=== PATIENT | male | born 1950 | race Caucasian/White ===

== ENCOUNTER 2018-09-23 08:10 | Inpatient (IN) ==
--- NOTE | 2018-09-23 09:33 | General Surg History&Physical ---
Date of Encounter: 09/23/18 Time of Encounter: 09:33 Assessment and Plan (1) Colon cancer Current Visit: Yes Status: Acute The assessment and plan as outlined above was discussed with the patient and/or family members who expressed understanding and agreement. All questions were answered. Has completed his ATBX and laxative bowel prep. Scheduled for elective robotic colectomy with Dr. Combs today. NPO EPCDs GI and DVT prophylaxis IS IVF supportive care and discomfort management Qualifiers: Colon location: transverse Qualified Code(s): C18.4 - Malignant neoplasm of transverse colon (2) Anemia Current Visit: Yes Status: Acute The assessment and plan as outlined above was discussed with the patient and/or family members who expressed understanding and agreement. All questions were answered Acute on chronic anemia. S/p transfusions in September 05 blood loss with transverse colon cancer. Hgb stable. Iron significantly decreased Type and screen Transfuse Venofer, 250 mg daily for total 1G over 4 days Repeat am labs Qualifiers: Anemia type: other cause Other causes of anemia: chronic disease, neoplastic Qualified Code(s): D63.0 - Anemia in neoplastic disease (3) HTN, goal below 130/80 Current Visit: Yes Status: Acute The assessment and plan as outlined above was discussed with the patient and/or family members who expressed understanding and agreement. All questions were answered. currently normotensive (4) GERD with esophagitis Current Visit: Yes Status: Acute The assessment and plan as outlined above was discussed with the patient and/or family members who expressed understanding and agreement. All questions were answered. protonix IV daily History of Present Illness Chief complaint: fatigue and bloody BMs HPI: Mr. Vallecillo is a 68 year old male who presents on 09/23/2017 for elective robotic colectomy secondary to malignant neoplasm of the transverse colon. Patient was seen by Dr. Combs on 09/20/2018 at which time he had underwent a colonoscopy by Dr. Santos in August 2018 which noted a transverse colon mass that was biopsied inconsistent with invasive adenocarcinoma. He reports loose bowel movements daily at that time. He denied unwanted weight loss. He reports he recently required blood transfusions due to significant anemia and near syncope episodes. He states his hemoglobin at that time was around 5.5. Presently, he denies headache, dizziness, fever, chills, chest pain, shortness of breath, or abdominal pain. He states he feels generally weak but thinks this is likely due to bowel prep and nothing to eat or drink. He denies constipation or diarrhea. He reports that at baseline (prior to feeling lightheaded and short of breath secondary to anemia) that he always took the steps at work 2 to 3 days per week and would walk daily at least 20 minutes. He denied any chest pain or shortness of breath associated. He denies any cardiovascular history. He is diabetic and reports this is controlled. Patient's past medical, surgical, social, and family history was reviewed with the patient at bedside and updated in the electronic medical record where indicated. Past Med Surg Social Fam HX - Past Medical History Source: patient Medical history: diabetes, GERD, hyperlipidemia, hypertension, other (Gout) Additional medical history: Anemia. Colon cancer (2019). colon polyps. hemorrhoids. Boswell's esophagus. degenerative disc disease Psychiatric history: no psych history - Past Surgical History Surgical History: appendectomy, orthopedic, other - Social History Smoking Status: Never smoker Smokeless Tobacco Status: No Alcohol use: none Drug use: none Occupational status: retired Current living situation: Home - Independent Activity Level: Independent ambulation Recent Out of Country Travel Within the Last 8 Weeks: No Exposure or Possible Exposure to Illness During Travel: No Review of Systems All systems PM: reviewed and no additional remarkable complaints except as stated All systems PM: The remainder of the systems were reviewed and are negative General Surgery Exam Initial Vital Signs Temp Pulse Resp BP Pulse Ox 98.7 F 79 16 110/68 99 09/23/18 08:28 09/23/18 08:28 09/23/18 08:28 09/23/18 08:28 09/23/18 08:28 VITAL SIGNS: Reviewed. See [facility] GENERAL: In no apparent distress. HEENT: Normocephalic, atraumatic, pupils are equal and reactive, extraocular motions intact, oropharynx is pink and moist, there is no neck adenopathy or JVD noted. CHEST/RESPIRATORY: The thorax is free from signs of trauma. Lung sounds: clear to auscultation, normal respiratory effort CARDIAC: Regular rate and rhythm. Normal S1 and S2, with grade to systolic murmur, no gallops or rubs. VASCULAR: No Edema. 2+ peripheral pulses. ABDOMEN: soft, nontender, active bowel sounds MUSCULOSKELETAL: Good range of motion of all major joints. Extremities without clubbing, cyanosis or edema. NEUROLOGIC EXAM: Alert and oriented x 3. Speech normal. Follows commands. PSYCHIATRIC: Mood normal. SKIN: No rash or lesions. Results - Labs 09/23/18 09:24 09/23/18 09:24 Abnormal lab results POC Glucose 186 mg/dL (70-99) H 09/23/18 08:44 All other labs normal. - Imaging Chest x-ray: report reviewed, image reviewed EKG: report reviewed, image reviewed
[2018-09-23 09:38] LABS: Basophils % 0.6 %; Hemoglobin 8.7 g/dL (12.9-16.9); Immature Granulocytes % 0.3 % (0-4); Red Cell Distribution Width 22.1 % (11.5-14.5)
[2018-09-23 09:39] LABS: Eosinophils # 0.1 K/mcL (0.0-0.6); Hematocrit 30.2 % (37.5-50.1); Lymphocytes # 1.5 K/mcL (0.6-4.6); Lymphocytes % 22.3 %; Mean Corpuscular HGB Conc 28.8 g/dL (31.6-35.5); Mean Corpuscular Hemoglobin 21.4 pg (28.0-33.3); Mean Corpuscular Volume 74.4 fL (83.0-100.0); Mean Platelet Volume 10.1 fL (9.4-12.4); Monocytes # 0.5 K/mcL (0.0-1.3); Monocytes % 7.1 %; Neutrophils # 4.4 K/mcL (1.6-8.9); Platelet Count 199 K/mcL (140-400); Red Blood Count 4.06 M/mcL (4.19-5.50); Segmented Neutrophils % 67.7 %; White Blood Count 6.5 K/mcL (4.3-11.1)
[2018-09-23 09:45] LABS: INR 1.2; Prothrombin Time 13.2 Seconds (9.4-12.1)
[2018-09-23 09:54] LABS: BUN/Creatinine Ratio 14 (6-26); Blood Urea Nitrogen 15 mg/dL (8-23); Calcium 10.2 mg/dL (8.6-10.3); Carbon Dioxide 25 mEq/L (23-29); Chloride 106 mEq/L (98-107); Glucose 178 mg/dL (70-105); Osmolality,Calculated 289 (280-300); Potassium 4.2 mEq/L (3.5-5.1); Sodium 137 mEq/L (136-145); eGFR For African Americans > 60 (> 60); eGFR For Non-African Americans > 60 (> 60)
[2018-09-23] MEDS ORDERED: Ondansetron 4 MG/2 ML VIAL IVP PRN ×2 (10:16→22:53)
[2018-09-23] MEDS ORDERED: *HR* Promethazine 25 MG/ML VIAL IVP PRN ×4 (10:16→22:53)
[2018-09-23 10:25] LABS: Estimated Average Glucose 163 mg/dl
[2018-09-23] MEDS ORDERED: Pantoprazole 40 MG VIAL IVP SCH (10:30)
[2018-09-23] MEDS ORDERED: 0.9 % Sodium Chloride 1,000 ML IVC SCH (10:30)
[2018-09-23 10:33] LABS: Anisocytosis 2+ (Not Present); Hypochromasia Present (Not Present); Ovalocytes 1+ (Not Present); Platelet Estimate Normal (Normal)
[2018-09-23 10:43] LABS: % Iron Saturation 4 % (20-55); Iron 21 mcg/dL (65-175); Transferrin 338 mg/dL (203-362)
[2018-09-23] MEDS ORDERED: Iron Sucrose Complex 250 MG in 0.9 % Sodium Chloride 250 ML IVPB SCH (11:00)
[2018-09-23] MEDS ORDERED: Metoprolol XL (24 HR) Succ 50 MG TAB.ER.24H PO SCH (15:00)
[2018-09-23] MEDS ORDERED: Lidocaine -MPF 4% 5 ML AMPUL ONE (16:55)
[2018-09-23] MEDS ORDERED: *HR* Propofol 200 MG/20 ML VIAL IVP ONE ×2 (16:55→18:51)
[2018-09-23] MEDS ORDERED: *HR* FentaNYL (PF) 100 MCG/2 ML VIAL ONE (16:55)
[2018-09-23] MEDS ORDERED: *HR* Rocuronium Bromide 50 MG/5 ML VIAL ONE ×2 (16:55→18:53)
[2018-09-23] MEDS ORDERED: Lidocaine -MPF 2% 2 ML VIAL ONE ×3 (16:55→18:53)
[2018-09-23] MEDS ORDERED: Ondansetron 4 MG/2 ML VIAL ONE ×2 (16:56→21:32)
[2018-09-23] MEDS ORDERED: Dexamethasone 4 MG/ML VIAL ONE ×2 (16:56→18:53)
--- NOTE | 2018-09-23 17:56 | Anesthesia Evaluation PreOp ---
Date of Encounter: 09/23/18 Time of Encounter: 17:54 - Past History Planned Operation: ROBOTIC COLON RESECTION, COLONOSCOPY Cardiac History: HTN, Hyperlipidemia IMPREGNATION OPERATOR History: Denies Any Significant HX Other Medical History: Bleeding, Diabetes Type II, GERD (RODRIGUEZ'S ESOPHAGUS), Other (TRANSVERSE COLON MASS, GOUT,) Anesthesia History: No Prior Anesthetic Complications, Past Anesthesia Alcohol Use: none Drug use: none Medications and Allergies Allopurinol [Zyloprim] 300 mg PO DAILY 09/23/18 [History] Alogliptin Benzoate [Alogliptin] 25 mg PO DAILY 09/23/18 [History] Aspirin Enteric Coated [Aspirin EC] 81 mg PO DAILY 09/23/18 [History] Atorvastatin [Lipitor] 80 mg PO HS 09/23/18 [History] Empagliflozin [Jardiance] 25 mg PO DAILY 09/23/18 [History] Gabapentin [Neurontin] 300 mg PO TID 09/23/18 [History] Lidocaine Patch [Lidoderm 5% patch] 1 patch TP Q24H PRN 09/23/18 [History] Lisinopril-HCTZ 20-12.5 1 tab PO DAILY 09/23/18 [History] Metformin HCl 500 mg PO 1200 09/23/18 [History] Metformin HCl [Glucophage] 1,000 mg PO BID 09/23/18 [History] Metoprolol Succinate 50 mg PO DAILY 09/23/18 [History] Ondansetron HCl [Zofran] 4 mg PO QID PRN 09/23/18 [History] Ranitidine HCl [Acid Denitrator Operator] 150 mg PO BID 09/23/18 [History] Sildenafil Citrate 50 mg PO AD PRN 09/23/18 [History] Terbinafine HCl [Terbinafine] 1 appl TP BID 09/23/18 [History] glipiZIDE [Glipizide] 20 mg PO BID 09/23/18 [History] Allergy/AdvReac Type Severity Reaction Status Date / Time No Known Drug Allergies Allergy Unknown none Verified 09/23/18 12:34 - Meds/Allergy Pre-op Review Medications Reviewed: Yes Allergies Reviewed: Yes Beta Blockers on Current Med List: No Anesthesia Results - Labs 09/23/18 09:24 09/23/18 09:24 Anesthesia Exam Vital Signs/O2 Sat/Glucose, Most Recent Temp Pulse Resp BP Pulse Ox 98.4 F 75 16 145/75 99 09/23/18 15:37 09/23/18 15:37 09/23/18 15:37 09/23/18 15:37 09/23/18 15:37 Blood Glucose* 124 Weight: 80 KG- BMI 24 NPO (# of Hours): >8 - HEENT Mallampati: I Teeth: Normal - Cardiac Rhythm: Regular - Pulmonary Breath Sounds: bilateral Clear Respiratory Effort: Symmetrical Anesthesia Assess/Plan ASA Score: 3 Anesthetic Plan: General Monitoring Plan: Standard Monitors Recovery Plan: PACU
[2018-09-23] MEDS ORDERED: Albuterol 2.5 MG/3 ML NEBULIZER IH ONE ×2 (18:23→22:53)
[2018-09-23] MEDS ORDERED: Dexamethasone 4 MG/ML VIAL IVP ONE ×2 (18:23→22:53)
[2018-09-23] MEDS ORDERED: *HR* OxyCODONE Immed Rel 5 MG TABLET PO PRN ×2 (18:23→22:53)
[2018-09-23] MEDS ORDERED: *HR* HYDROmorphone (PF) 1 MG/ML SYRINGE IVP PRN ×2 (18:23→22:53)
[2018-09-23] MEDS ORDERED: Acetaminophen IV 1,000 MG/100 ML INFUS..BTL ONE (18:47)
[2018-09-23] MEDS ORDERED: *HR* HYDROMORPHONE 2 MG/ML VIAL ONE (18:51)
[2018-09-23] MEDS ORDERED: *HR* Succinylcholine 200 MG/10 ML VIAL IVP ONE (18:53)
[2018-09-23] MEDS ORDERED: CefOXitin 2,000 MG VIAL ONE (20:12)
[2018-09-23] MEDS ORDERED: *HR* Metoprolol 5 MG/5 ML VIAL IVP ONE (20:12)
[2018-09-23] MEDS ORDERED: *HR* Magnesium Sulfate 1 GM/2 ML VIAL ONE (20:51)
[2018-09-23] MEDS ORDERED: Neostigmine Methylsulfate 3 MG/3 ML SYRINGE ONE (21:25)
[2018-09-23] MEDS ORDERED: Ketorolac 30 MG/ML VIAL ONE (21:27)
--- NOTE | 2018-09-23 22:07 | Operative Note ---
Date of procedure: 09/23/18 Pre-op diagnosis: Proximal transverse colon cancer Post-op diagnosis: same Procedure: Robotic extended right hemicolectomy with primary anastomosis Anesthesia: NURIAA Surgeon: Chevy Combs Was there an assistant health educator present: Yes House Piping Inspector: Emily Tavarez Estimated blood loss (cc): 15 Specimen: Right colon and transverse colon Condition: stable Disposition: floor Procedure in Detail: After informed consent, the patient was taken the operating room placed in a supine position. After adequate sedation and anesthesia the abdomen was prepped and draped. 2 towel clips are placed the umbilicus and impression was inserted into the abdomen. Pneumoperitoneum was created. A 12 mm cannulas placed in the left mid axillary line below the level of the umbilicus. Once in place additional robotic cannulas were placed under direct visualization. A 5 mm cannulas placed in the left lower quadrant. Once all cannulas were in place robot was docked over the patient's right hip. The patient had undergone a colonoscopy preoperatively to identify the tumor. It appeared to be between the mid transverse colon and hepatic flexure. No biopsies were taken during the colonoscopy. Once it was completed we are able to identify the tumor in the colon as being proximal transverse colon. Upon initial evaluation within the abdomen the colonoscopy findings were consistent with a tattoo delineations of the transverse colon. The Ashu graspers were placed into cannulas on the right side of the abdomen. A vessel sealer was inserted into the abdomen as well. This point the terminal ileum and fold of Treves were identified and it was retracted anteriorly and cephalad. The ileocolic vessel was easily identified. A window was created in the retroperitoneum. The duodenum was easily identified and kept on harm's way. The right colic artery and vein were isolated and taken with a vessel sealer. The duodenum was kept out of harm's way as we transected the transverse mesocolon to an area approximate 5-8 cm distal to the tattoo that was distal to the tumor. This area was taken with a 60 mm blue stapling load. The same was performed for the terminal ileum. The retroperitoneal attachments were then taken down with a vessel sealer. Once the entire right colon had been freed from the retroperitoneal attachments it was placed over the right lobe of the liver. The terminal ileum was then approximated to the mid transverse colon. 2 enterotomies were created with scissors. The 60 mm stapling load was then inserted in each limb of the small bowel and large bowel secured in the nose fired. The common enterotomy was closed with 2 individual 2-0 silk sutures in running fashion. A portion of omentum was tacked over the anastomosis in the transverse colon omentum was then placed safely back over the anastomotic site. 2 needles which towards the falciform the robot was undocked and the needles were removed. A counterincision was made at the 12 mm camera site. The large bowel was removed through a wound protector. The tumor was within the specimen as it was palpated and brought out through this opening. Once completed the fascia was closed with loop PDS suture in running fashion it was injected with half percent Marcaine the same was performed on the 13 mm site as well as 8 mm sites. [place] were placed in the skin. The patient tolerated the procedure quite well.
[2018-09-23] MEDS ORDERED: *HR* Nalbuphine 10 MG/ML AMPUL ONE (22:17)
[2018-09-24] MEDS ORDERED: 0.9 % Sodium Chloride 1,000 ML IVC ONE (01:06)
[2018-09-24] MEDS: 0.9 % Sodium Chloride 1,000 ML IVC SCH ×3 (02:03→12:30)
--- NOTE | 2018-09-24 02:10 | Anesthesia Evaluation Post Op ---
Date of Encounter: 09/24/18 Time of Encounter: 22:44 - Discharge PostOp Status: Transfer Patient to floor (Patient's vital signs have been reviewed. Patient is stable postoperatively and has adequately recovered from anesthesia. Patient is determined to have stable airway patency and respiratory function including respiratory rate and oxygen saturation. Patient has a stable heart rate, blood pressure and adequate hydration. Patients mental status is acceptable. Patients temperature is appropriate. Pain and nausea are adequately controlled.)
[2018-09-24] MEDS ORDERED: *HR* Dextrose 50 % in Water (Syg) 50 ML SYRINGE IVP PRN ×2 (05:29→11:24)
[2018-09-24] MEDS ORDERED: D5% in Water 1,000 ML IVC PRN ×2 (05:29→11:24)
[2018-09-24] MEDS ORDERED: Dextrose Gel 15 GM/37.5 ML TUBE PO PRN ×4 (05:29→11:24)
[2018-09-24] MEDS ORDERED: *HR* Heparin 5,000 UNIT/ML VIAL SQ SCH (06:00)
[2018-09-24] MEDS ORDERED: Insulin LISPRO 300 UNITS/3 ML VIAL SQ SCH ×4 (06:00→17:05)
[2018-09-24] MEDS ORDERED: 0.9 % Sodium Chloride 1,000 ML IV ONE (07:48)
[2018-09-24 08:01] LABS: Basophils % 0.1 %; Immature Granulocytes % 0.9 % (0-4); Mean Corpuscular Hemoglobin 21.7 pg (28.0-33.3)
[2018-09-24 08:02] LABS: Hematocrit 21.5 % (37.5-50.1); Lymphocytes % 7.2 %; Mean Corpuscular Volume 80.5 fL (83.0-100.0); Mean Platelet Volume 10.9 fL (9.4-12.4); Monocytes # 0.4 K/mcL (0.0-1.3); Nucleated Red Blood Cells 0.1 /100 WBC (0); Platelet Count 240 K/mcL (140-400); Red Blood Count 2.67 M/mcL (4.19-5.50); Red Cell Distribution Width 22.5 % (11.5-14.5); Segmented Neutrophils % 88.8 %
[2018-09-24 08:05] LABS: Neutrophils # 12.4 K/mcL (1.6-8.9)
[2018-09-24 08:13] LABS: Hemoglobin 5.8 g/dL (12.9-16.9)
[2018-09-24] MEDS ORDERED: Furosemide 20 MG/2 ML VIAL IVP ONE ×2 (08:14→11:24)
[2018-09-24 08:17] LABS: Calcium 8.7 mg/dL (8.6-10.3); Magnesium 2.5 mg/dL (1.6-2.6); Phosphorous 7.3 mg/dL (2.7-4.5); Potassium 6.4 mEq/L (3.5-5.1)
--- NOTE | 2018-09-24 08:19 | General Surgery Progress Note ---
Date of Encounter: 09/24/18 Time of Encounter: 08:17 - Assessment and Plan (1) Colon cancer Current Visit: Yes Status: Acute Date of procedure: 09/23/18 Pre-op diagnosis: Proximal transverse colon cancer Post-op diagnosis: same Procedure: Robotic extended right hemicolectomy with primary anastomosis Anesthesia: EDITA Surgeon: Chevy Combs POD #1 as above. Pathology pending. Reports abdominal discomfort is minimal. He is drowsy but just received IV phenergan for nausea (no vomiting). He is hypotensive and has decreased hgb. See below. No obvious source identified. RN reports oozing from surgical incisions, but not obvious hemorrhage. Roman cath placed for acute urinary retention. 1L clear yellow urine returned. UA obtained at time of insertion. Transfer to as below continue supportive care and discomfort management Bedrest at this time EPCDs Will not start hep SQ given findings above IVF Insert 2nd large bore IV; if unable to obtain access, RN to place order for MIDLINE stat. continue to closely monitor Strict hourly I&O Qualifiers: Colon location: transverse Qualified Code(s): C18.4 - Malignant neoplasm of transverse colon (2) Anemia Current Visit: Yes Status: Acute Acute blood loss anemia on chronic anemia Blood loss per op note minimal. No clear causation of decreased hgb appreciated as abdomen is soft and non-tender. Hgb 5.8 today. Transfuse 2U PRBCs STAT. 40 mg lasix in between units. OK to transfuse at highest rate, pt is w/o cardiovascular history. Will closely monitor Bedrest H&H in 6 hours (1400) Qualifiers: Anemia type: other cause Other causes of anemia: chronic disease, n eoplastic Qualified Code(s): D63.0 - Anemia in neoplastic disease (3) HTN, goal below 130/80 Current Visit: Yes Status: Acute Currently hypotensive. All home medications held (4) GERD with esophagitis Current Visit: Yes Status: Acute protonix IV daily (5) Hypotension, unspecified Current Visit: Yes Status: Acute hypovolemia vs acute blood loss. BMP pending. He has made 1L urine since surgery completed. Bolus 2L NS over 1 hours Transfer to for higher level of care Qualifiers: Hypotension type: unspecified hypotension type Qualified Code(s): I95.9 - Hypotension, unspecified (6) Diabetes Current Visit: Yes Status: Acute SSI Q6H Qualifiers: Diabetes mellitus type: type 2 Diabetes mellitus rat exterminator insulin use: without rat exterminator use Diabetes mellitus complication status: without complication Qualified Code(s): E11.9 - Type 2 diabetes mellitus without complications Subjective Narrative: Rerpots nausea, no vimiting, pain is controlled overall. Has some pressure in the low abdomen. Was just given phenergan IV for nausea, so he is drowsy right now. Noted RN notes pt refusing insulin. Objective Vital Signs - Last 8 Hours Temp Pulse Resp BP Pulse Ox 09/24/18 04:58 65 14 80/48 97 09/24/18 03:45 97.8 F 63 16 83/46 100 09/24/18 02:30 64 78/41 09/24/18 02:12 63 14 87/46 98 09/24/18 01:28 98.0 F 64 14 78/43 97 09/24/18 01:00 97.4 F L 65 14 78/44 99 09/24/18 00:55 97.9 F 66 14 70/38 98 Intake and Output 09/23/18 09/24/18 09/24/18 23:59 07:59 15:59 Intake Total 605 / 867.5 Output Total Balance 590 / 852.5 Intake: IV Fluids 605 / 867.5 0.9 % Sodium Chloride 1,000 ML 605 / 605 @ 125 mls/hr IVC .Q8H [facility] Rx#: [id number] Output: Estimated Blood Loss Other: Blood Glucose* 155 355 - General physical appearance no distress, other (drowsy) - Eyes pale - ENT normal nares, normal mucosa, atraumatic, normocephalic - Neck Neck exam: trachea midline - Respiratory other (decreased clear breath sounds) - Cardiovascular Cardiovascular exam: Present: RRR - Abdomen Abdomen: Present: soft (prior to roman insertion, low abdomen was firm, after insertion abdomen is soft), tender (expected postoperative). Absent: bowel sounds present - Incision Incision: Present: draining (small amount of red drainage), intact - Integumentary no rash - Neurologic normal sensation - Musculoskeletal other (lying flat in bed) - Psychiatric oriented to place, memory intact, other (drowsy,but answers questions appropriately) - Labs 09/24/18 07:46 06/21/19 07:46 Diabetes panel 09/23/18 09/23/18 09/24/18 Range/Units 09:24 09:24 07:46 Sodium 137 (136-145) mEq/L Potassium 4.2 6.4 H D (3.5-5.1) mEq/L Chloride 106 (98-107) mEq/L Carbon Dioxide 25 (23-29) mEq/L BUN 15 (8-23) mg/dL Creatinine 1.10 (0.70-1.30) mg/dL Glucose 178 H (70-105) mg/dL Hemoglobin A1c 7.3 H ( - 5.6) % Calcium 10.2 (8.6-10.3) mg/dL Calcium panel 09/23/18 Range/Units 09:24 Calcium 10.2 (8.6-10.3) mg/dL Pituitary panel 09/23/18 09/24/18 Range/Units 09:24 07:46 Sodium 137 (136-145) mEq/L Potassium 4.2 6.4 H D (3.5-5.1) mEq/L Chloride 106 (98-107) mEq/L Carbon Dioxide 25 (23-29) mEq/L BUN 15 (8-23) mg/dL Creatinine 1.10 (0.70-1.30) mg/dL Glucose 178 H (70-105) mg/dL Calcium 10.2 (8.6-10.3) mg/dL Adrenal panel 09/23/18 09/24/18 Range/Units 09:24 07:46 Sodium 137 (136-145) mEq/L Potassium 4.2 6.4 H D (3.5-5.1) mEq/L Chloride 106 (98-107) mEq/L Carbon Dioxide 25 (23-29) mEq/L BUN 15 (8-23) mg/dL Creatinine 1.10 (0.70-1.30) mg/dL Glucose 178 H (70-105) mg/dL Calcium 10.2 (8.6-10.3) mg/dL Consult Discharge Plan - Plan Referrals: Chevy Combs DO [Primary Care Provider] - Chloe Garcia MD [Partnered Physician] -
[2018-09-24] MEDS ORDERED: 0.9 % Sodium Chloride 250 ML ONE ×2 (08:36→12:04)
[2018-09-24 08:37] LABS: Hypochromasia Present (Not Present); Platelet Estimate Normal (Normal); Polychromasia 1+ (Not Present)
[2018-09-24 08:47] LABS: Bilirubin,Urine Negative (Negative); Blood,Urine Negative (Negative); Clarity,Urine Cloudy (Clear); Color,Urine Yellow (Yellow); Glucose,Urine (UA) >=1000 mg/dL (Normal); Ketones,Urine 15 mg/dL (Negative); Leukocyte Esterase,Urine Negative (Negative); Nitrite,Urine Negative (Negative); PH,Urine 6.5 pH Units (5.0-8.0); Protein,Urine Trace mg/dL (Neg-Trace); Specific Gravity,Urine 1.026 (1.010-1.025); Urobilinogen,Urine Normal (Normal)
[2018-09-24 08:49] LABS: Bacteria,Urine None Seen per hpf (None-Few); Hyaline Casts,Urine None Seen per lpf (None-Few); Squamous Epithelial Cell,Urine Moderate per lpf (None-Few); WBC,Urine 0-3 per hpf (0-3)
[2018-09-24] MEDS ORDERED: Iron Sucrose Complex 250 MG in 0.9 % Sodium Chloride 250 ML IVPB SCH (09:00)
[2018-09-24] MEDS ORDERED: Metoprolol XL (24 HR) Succ 50 MG TAB.ER.24H PO SCH (09:00)
[2018-09-24] MEDS ORDERED: Pantoprazole 40 MG VIAL IVP SCH (09:00)
[2018-09-24 09:22] LABS: Calcium 8.5 mg/dL (8.6-10.3); Potassium 6.3 mEq/L (3.5-5.1)
--- NOTE | 2018-09-24 09:33 | Electrocardiograph Report ---
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
[2018-09-24] MEDS ORDERED: *HR* Promethazine 25 MG/ML VIAL IVP PRN (11:24)
[2018-09-24] MEDS ORDERED: Ondansetron 4 MG/2 ML VIAL IVP PRN (11:24)
--- NOTE | 2018-09-24 13:54 | Electrocardiograph Report ---
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
[2018-09-24 16:22] LABS: Hematocrit 23.1 % (37.5-50.1)
[2018-09-24 16:46] LABS: Calcium 8.7 mg/dL (8.6-10.3); Potassium 4.6 mEq/L (3.5-5.1)
[2018-09-24 21:48] LABS: Hematocrit 22.2 % (37.5-50.1); Hemoglobin 6.9 g/dL (12.9-16.9)
[2018-09-25] MEDS: 0.9 % Sodium Chloride 1,000 ML IVC SCH ×2 (01:35→10:45)
[2018-09-25 02:23] LABS: Basophils % 0.1 %; Lymphocytes % 14.9 %; Monocytes % 7.9 %; Nucleated Red Blood Cells 0.2 /100 WBC (0)
[2018-09-25 02:25] LABS: Eosinophils % 0.1 %; Hematocrit 21.8 % (37.5-50.1); Hemoglobin 6.7 g/dL (12.9-16.9); Immature Granulocytes % 0.4 % (0-4); Immature Platelets 5.1 % (1.1-6.1); Lymphocytes # 1.9 K/mcL (0.6-4.6); Mean Corpuscular HGB Conc 30.7 g/dL (31.6-35.5); Mean Corpuscular Hemoglobin 23.9 pg (28.0-33.3); Mean Corpuscular Volume 77.9 fL (83.0-100.0); Mean Platelet Volume 11.5 fL (9.4-12.4); Platelet Count 179 K/mcL (140-400); Red Cell Distribution Width 21.2 % (11.5-14.5); Segmented Neutrophils % 76.6 %; White Blood Count 12.6 K/mcL (4.3-11.1)
[2018-09-25 02:30] LABS: Neutrophils # 9.7 K/mcL (1.6-8.9)
[2018-09-25 02:46] LABS: BUN/Creatinine Ratio 21 (6-26); Blood Urea Nitrogen 29 mg/dL (8-23); Calcium 8.8 mg/dL (8.6-10.3); Carbon Dioxide 21 mEq/L (23-29); Chloride 107 mEq/L (98-107); Glucose 227 mg/dL (70-105); Magnesium 2.4 mg/dL (1.6-2.6); Osmolality,Calculated 299 (280-300); Phosphorous 4.1 mg/dL (2.7-4.5); Potassium 4.1 mEq/L (3.5-5.1); Sodium 138 mEq/L (136-145); eGFR For African Americans > 60 (> 60); eGFR For Non-African Americans 52 (> 60)
--- NOTE | 2018-09-25 06:59 | General Surgery Progress Note ---
Date of Encounter: 09/25/18 Time of Encounter: 06:56 - Assessment and Plan (1) Colon cancer Current Visit: Yes Status: Acute pod 2 robotic colectomy bowel sounds advance diet as tolerate to diabetic diet Qualifiers: Colon location: transverse Qualified Code(s): C18.4 - Malignant neoplasm of transverse colon (2) Anemia Current Visit: Yes Status: Acute transfuse 1 unit PRBC monitor Hb, stable decrease IVF good uop cr improving Qualifiers: Anemia type: other cause Other causes of anemia: chronic disease, neoplastic Qualified Code(s): D63.0 - Anemia in neoplastic disease (3) HTN, goal below 130/80 Current Visit: Yes Status: Chronic restart lopressor only monitor BP (4) GERD with esophagitis Current Visit: Yes Status: Chronic stop protonix, restart H2 tianna (5) Diabetes Current Visit: Yes Status: Chronic medium SSI, elevated glucose still hold metformin for now due to MOI change his SSI to high dose Qualifiers: Diabetes mellitus type: type 2 Diabetes mellitus exterminator termite insulin use: without fpc use Diabetes mellitus complication status: without complication Qualified Code(s): E11.9 - Type 2 diabetes mellitus without complications (6) Urinary retention Current Visit: Yes Status: Acute dc roman, good uop flomax Subjective Patient reports: feels better, still having pain, tolerating liquids well, voiding w/o difficulty (roman in place), flatus, no bowel movement, afebrile Objective Vital Signs - Last 8 Hours Temp Pulse Resp BP Pulse Ox 09/25/18 04:10 97.8 F 81 16 122/62 98 09/25/18 04:06 97.8 F 81 16 122/62 98 09/24/18 23:50 98.1 F 77 18 123/65 98 Intake and Output 09/24/18 09/24/18 09/25/18 15:59 23:59 07:59 Intake Total 2710 / 3470 760 / 3470 1000 / 1000 Output Total 2050 / 2750 700 / 2750 0 / 0 Balance 660 / 720 60 / 720 1000 / 1000 Intake: IV Fluids 1000 / 1000 1000 / 1000 0.9 % Sodium Chloride 1,000 ML 1000 / 1000 1000 / 1000 @ 125 mls/hr IVC .Q8H [facility] Rx#: [id number] Oral 960 / 1720 760 / 1720 0 / 0 Blood Product 750 / 750 Rbcs Leuko Poor As-1 Unit 400 / 400 [id number] Rbcs Leuko Poor As-3 Ph Unit 350 / 350 [id number] Output: Catheter 2050 / 2750 700 / 2750 0 / 0 Urethral (Roman) 1000 / 1350 350 / 1350 0 / 0 Other: Meal npo Blood Glucose* 333 265 - General physical appearance well developed, well nourished, no distress, moderate pain - Eyes normal ocular movement - ENT normal mucosa - Neck Neck exam: trachea midline - Cardiovascular Cardiovascular exam: Present: RRR - Abdomen Abdomen: Present: bowel sounds present, soft, tender (appropriate post op tenderness) - Incision Incision: Present: clean and dry, intact - Genitourinary other (roman with clear yellow urine) - Integumentary no rash - Neurologic CN 2-12 grossly intact - Musculoskeletal normal posture - Psychiatric oriented to time, oriented to person, oriented to place, speech is normal, memory intact - Labs 09/25/18 00:51 09/25/18 00:51 Diabetes panel 09/24/18 09/24/18 09/24/18 Range/Units 07:46 08:50 16:01 Sodium 138 137 137 (136-145) mEq/L Potassium 6.4 H D 6.3 H 4.6 D (3.5-5.1) mEq/L Chloride 107 107 105 (98-107) mEq/L Carbon Dioxide 13 L 15 L 19 L (23-29) mEq/L BUN 24 H 25 H 30 H (8-23) mg/dL Creatinine 1.70 H 1.64 H 1.68 H (0.70-1.30) mg/dL Glucose 373 H 369 H 349 H (70-105) mg/dL Calcium 8.7 8.5 L 8.7 (8.6-10.3) mg/dL 09/25/18 Range/Units 00:51 Sodium 138 (136-145) mEq/L Potassium 4.1 (3.5-5.1) mEq/L Chloride 107 (98-107) mEq/L Carbon Dioxide 21 L (23-29) mEq/L BUN 29 H (8-23) mg/dL Creatinine 1.35 H (0.70-1.30) mg/dL Glucose 227 H (70-105) mg/dL Calcium 8.8 (8.6-10.3) mg/dL Calcium panel 09/24/18 09/24/18 09/24/18 Range/Units 07:46 08:50 16:01 Calcium 8.7 8.5 L 8.7 (8.6-10.3) mg/dL Phosphorus 7.3 H (2.7-4.5) mg/dL 09/25/18 Range/Units 00:51 Calcium 8.8 (8.6-10.3) mg/dL Phosphorus 4.1 (2.7-4.5) mg/dL Pituitary panel 09/24/18 09/24/18 09/24/18 Range/Units 07:46 08:50 16:01 Sodium 138 137 137 (136-145) mEq/L Potassium 6.4 H D 6.3 H 4.6 D (3.5-5.1) mEq/L Chloride 107 107 105 (98-107) mEq/L Carbon Dioxide 13 L 15 L 19 L (23-29) mEq/L BUN 24 H 25 H 30 H (8-23) mg/dL Creatinine 1.70 H 1.64 H 1.68 H (0.70-1.30) mg/dL Glucose 373 H 369 H 349 H (70-105) mg/dL Calcium 8.7 8.5 L 8.7 (8.6-10.3) mg/dL 09/25/18 Range/Units 00:51 Sodium 138 (136-145) mEq/L Potassium 4.1 (3.5-5.1) mEq/L Chloride 107 (98-107) mEq/L Carbon Dioxide 21 L (23-29) mEq/L BUN 29 H (8-23) mg/dL Creatinine 1.35 H (0.70-1.30) mg/dL Glucose 227 H (70-105) mg/dL Calcium 8.8 (8.6-10.3) mg/dL Adrenal panel 09/24/18 09/24/18 09/24/18 Range/Units 07:46 08:50 16:01 Sodium 138 137 137 (136-145) mEq/L Potassium 6.4 H D 6.3 H 4.6 D (3.5-5.1) mEq/L Chloride 107 107 105 (98-107) mEq/L Carbon Dioxide 13 L 15 L 19 L (23-29) mEq/L BUN 24 H 25 H 30 H (8-23) mg/dL Creatinine 1.70 H 1.64 H 1.68 H (0.70-1.30) mg/dL Glucose 373 H 369 H 349 H (70-105) mg/dL Calcium 8.7 8.5 L 8.7 (8.6-10.3) mg/dL 09/25/18 Range/Units 00:51 Sodium 138 (136-145) mEq/L Potassium 4.1 (3.5-5.1) mEq/L Chloride 107 (98-107) mEq/L Carbon Dioxide 21 L (23-29) mEq/L BUN 29 H (8-23) mg/dL Creatinine 1.35 H (0.70-1.30) mg/dL Glucose 227 H (70-105) mg/dL Calcium 8.8 (8.6-10.3) mg/dL Consult Discharge Plan - Plan Instructions: Colectomy (DC) Additional Instructions: General Surgical Discharge Instructions 1. No pushing, pulling, or lifting greater than 15 lbs for 2-4 weeks (depending upon procedure). 2. You may shower beginning today, but no tub baths, soaking, or swimming for 2 weeks. 3. You may resume driving when you are off narcotics and are safe to react in a car. 4. Take ibuprofen every 8 hours for discomfort. If this does not relieve discomfort, you may take the as needed Percocet. Take narcotics as directed. Do not take more narcotics then directed and do not share your narcotics with any other person. Do not drink alcohol while on narcotics. 5. Take stool softeners (Colace) or a water based laxative (Miralax) while taking narcotics. You may hold for loose stools. 6. Report any fevers greater than 100.5F, increase abdominal discomfort, drainage that looks like pus, increased redness or pain at the surgical site, or any vomiting. 7. Report any pain in the calves, shortness of breath, or rapid heartbeat. 8. Follow-up in the office as directed. 9. If you were prescribed antibiotics, do not stop them without talking to your provider. Referrals: Chevy Combs DO [Primary Care Provider] - 10/12/18 9:10 am Chloe Garcia MD [Partnered Physician] - Prescriptions: Docusate Sodium [Colace] 100 mg PO BID PRN #30 capsule PRN Reason: Contstipation Ibuprofen 800 mg PO Q8H PRN #30 tablet PRN Reason: Postsurgical pain OxyCODONE/APAP 5/325 [Percocet 5/325 MG] 1 each PO Q6HR PRN 7 Days #28 tablet PRN Reason: Pain Ondansetron ODT [Zofran ODT] 4 mg SL Q4HR PRN #15 tab.rapdis PRN Reason: Postsurgical nausea
[2018-09-25] MEDS ORDERED: METOPROLOL SUCCINATE 50 MG PO SCH (09:00)
[2018-09-25] MEDS ORDERED: Pantoprazole 40 MG VIAL IVP SCH (09:00)
[2018-09-25] MEDS ORDERED: Iron Sucrose Complex 250 MG in 0.9 % Sodium Chloride 250 ML IVPB SCH (09:00)
[2018-09-25] MEDS: Famotidine 20 MG TABLET PO SCH ×2 (10:35→18:24)
[2018-09-25] MEDS: Metoprolol XL (24 HR) Succ 50 MG TAB.ER.24H PO SCH (10:36)
[2018-09-25] MEDS: Insulin LISPRO 300 UNITS/3 ML VIAL SQ SCH ×4 (10:37→20:38)
[2018-09-25] MEDS: *HR* HYDROcodone/Acet 5/325 mg TABLET PO PRN (10:38)
[2018-09-25] MEDS: Acetaminophen 325 MG TABLET PO PRN (13:30)
--- NOTE | 2018-09-25 13:52 | Electrocardiograph Report ---
[address] [address] Test Date: 2018-09-24 Pat Name: Casey Vallecillo Department: 115 Room: 2N06 Gender: M Furnace Operator: : [id number] Requested By: Radha Ba Order Number: [id number] Reading MD: Wil Garcia Measurements Intervals [place] Rate: 69 P: 40 HI: 194 QRS: -12 QRSD: 109 T: 37 QT: 453 QTc: 472 Interpretive Statements SINUS RHYTHM LOW QRS VOLTAGE IN PRECORDIAL LEADS INFERIOR ST-T CHANGES SIMILAR TO PRIOR ECG Electronically Signed On 09-25-2018 13:50:49 EDT by Wil Garcia
[2018-09-26] MEDS: 0.9 % Sodium Chloride 1,000 ML IVC SCH (01:57)
[2018-09-26 04:02] LABS: Basophils % 0.3 %; Eosinophils # 0.1 K/mcL (0.0-0.6); Eosinophils % 0.6 %; Hematocrit 19.9 % (37.5-50.1); Immature Granulocytes % 1.7 % (0-4); Lymphocytes # 1.6 K/mcL (0.6-4.6); Lymphocytes % 17.1 %; Mean Corpuscular HGB Conc 30.2 g/dL (31.6-35.5); Mean Corpuscular Hemoglobin 24.4 pg (28.0-33.3); Mean Corpuscular Volume 80.9 fL (83.0-100.0); Mean Platelet Volume 11.1 fL (9.4-12.4); Monocytes # 0.6 K/mcL (0.0-1.3); Monocytes % 6.6 %; Neutrophils # 6.9 K/mcL (1.6-8.9); Nucleated Red Blood Cells 0.9 /100 WBC (0); Platelet Count 150 K/mcL (140-400); Red Blood Count 2.46 M/mcL (4.19-5.50); Red Cell Distribution Width 21.4 % (11.5-14.5); Segmented Neutrophils % 73.7 %; White Blood Count 9.4 K/mcL (4.3-11.1)
[2018-09-26 04:05] LABS: BUN/Creatinine Ratio 18 (6-26); Blood Urea Nitrogen 17 mg/dL (8-23); Calcium 8.9 mg/dL (8.6-10.3); Carbon Dioxide 21 mEq/L (23-29); Chloride 110 mEq/L (98-107); Glucose 231 mg/dL (70-105); Osmolality,Calculated 293 (280-300); Potassium 4.2 mEq/L (3.5-5.1); Sodium 137 mEq/L (136-145); eGFR For African Americans > 60 (> 60); eGFR For Non-African Americans > 60 (> 60)
[2018-09-26 04:23] LABS: Anisocytosis 2+ (Not Present); Polychromasia 1+ (Not Present)
[2018-09-26 04:24] LABS: Hypochromasia Present (Not Present); Platelet Estimate Normal (Normal); Tear Drop Cells 1+ (Not Present)
[2018-09-26] MEDS: Acetaminophen 325 MG TABLET PO PRN ×2 (05:00→20:04)
[2018-09-26] MEDS ORDERED: 0.9 % Sodium Chloride 250 ML ONE ×2 (06:33→10:34)
[2018-09-26 06:47] LABS: INR 1.1
--- NOTE | 2018-09-26 08:23 | General Surgery Progress Note ---
Date of Encounter: 09/26/18 Time of Encounter: 08:20 - Assessment and Plan (1) Colon cancer Current Visit: Yes Status: Acute pod 3 robotic colectomy bowel sounds tolerating diabetic diet has return of bowel function, flatus and bm/diarrhea, stopped stool softeners saline lock iv ok shower Qualifiers: Colon location: transverse Qualified Code(s): C18.4 - Malignant neoplasm of transverse colon (2) Anemia Current Visit: Yes Status: Acute transfuse 2 unit PRBC today, apparently patient did not get unit of blood nursing was asked to order yesterday monitor Hb CT shows no evidence of hematoma good uop, patient is urinating and dumping urine in toilet and nurses not able to accurately record cr improving Qualifiers: Anemia type: other cause Other causes of anemia: chronic disease, neoplastic Qualified Code(s): D63.0 - Anemia in neoplastic disease (3) HTN, goal below 130/80 Current Visit: Yes Status: Chronic continue lopressor only at this time monitor BP (4) GERD with esophagitis Current Visit: Yes Status: Chronic continue H2 tianna (5) Diabetes Current Visit: Yes Status: Chronic medium SSI, elevated glucose restarted home diabetic mediation, except metformin still hold metformin for now due to recent MOI SSI to high dose Qualifiers: Diabetes mellitus type: type 2 Diabetes mellitus intermediate frame tender insulin use: without intermediate frame tender use Diabetes mellitus complication status: without complication Qualified Code(s): E11.9 - Type 2 diabetes mellitus without complications (6) Urinary retention Current Visit: Yes Status: Acute monitor uop flomax Subjective Patient reports: still having pain, pain is less (states just feels rough), tolerating a regular diet (diabetic), voiding w/o difficulty, flatus, diarrhea, afebrile Objective Vital Signs - Last 8 Hours Temp Pulse Resp BP Pulse Ox 09/26/18 07:03 98.9 F 87 16 123/67 94 09/26/18 06:38 99.0 F 87 12 118/62 93 09/26/18 06:35 99.7 F H 92 12 114/62 95 09/26/18 03:03 99 F 87 16 132/67 92 Intake and Output 09/25/18 09/26/18 09/26/18 23:59 07:59 15:59 Intake Total 360 / 1600 1000 / 1000 Output Total 1450 / 2100 500 / 500 Balance -1090 / -500 500 / 500 Intake: IV Fluids 1000 / 1000 0.9 % Sodium Chloride 1,000 ML 1000 / 1000 @ 70 mls/hr IVC .[id number] [facility] Rx #:[id number] Oral 360 / 600 Blood Product 0 / 0 Rbcs Leuko Poor As-1 Unit 0 / 0 [id number] Output: Urine 950 / 950 500 / 500 Catheter 500 / 1150 Other: Meal Dinner Percent of Meal Consumed 100% Stool Size Moderate Stool Consistency soft Stool Color Brown # Voids 1 Weight 87.8 kg Blood Glucose* 289 243 Patient Weight 09/26/18 23:59 Weight 87.8 kg - General physical appearance well developed, well nourished, no distress - Eyes PERRL, normal ocular movement - ENT normal mucosa, normocephalic - Neck Neck exam: trachea midline - Respiratory normal expansion, clear to auscultation - Cardiovascular Cardiovascular exam: Present: RRR - Abdomen Abdomen: Present: bowel sounds present, soft, tender (appropriate post op tenderness) - Incision Incision: Present: clean and dry, intact - Integumentary no rash, no growths - Neurologic CN 2-12 grossly intact - Musculoskeletal normal posture - Psychiatric oriented to time, oriented to person, oriented to place, speech is normal, memory intact - Labs 09/26/18 03:29 09/26/18 03:29 Diabetes panel 09/26/18 Range/Units 03:29 Sodium 137 (136-145) mEq/L Potassium 4.2 (3.5-5.1) mEq/L Chloride 110 H (98-107) mEq/L Carbon Dioxide 21 L (23-29) mEq/L BUN 17 (8-23) mg/dL Creatinine 0.96 (0.70-1.30) mg/dL Glucose 231 H (70-105) mg/dL Calcium 8.9 (8.6-10.3) mg/dL Calcium panel 09/26/18 Range/Units 03:29 Calcium 8.9 (8.6-10.3) mg/dL Pituitary panel 09/26/18 Range/Units 03:29 Sodium 137 (136-145) mEq/L Potassium 4.2 (3.5-5.1) mEq/L Chloride 110 H (98-107) mEq/L Carbon Dioxide 21 L (23-29) mEq/L BUN 17 (8-23) mg/dL Creatinine 0.96 (0.70-1.30) mg/dL Glucose 231 H (70-105) mg/dL Calcium 8.9 (8.6-10.3) mg/dL Adrenal panel 09/26/18 Range/Units 03:29 Sodium 137 (136-145) mEq/L Potassium 4.2 (3.5-5.1) mEq/L Chloride 110 H (98-107) mEq/L Carbon Dioxide 21 L (23-29) mEq/L BUN 17 (8-23) mg/dL Creatinine 0.96 (0.70-1.30) mg/dL Glucose 231 H (70-105) mg/dL Calcium 8.9 (8.6-10.3) mg/dL Consult Discharge Plan - Plan Instructions: Colectomy (DC) Additional Instructions: General Surgical Discharge Instructions 1. No pushing, pulling, or lifting greater than 15 lbs for 2-4 weeks (depending upon procedure). 2. You may shower beginning today, but no tub baths, soaking, or swimming for 2 weeks. 3. You may resume driving when you are off narcotics and are safe to react in a car. 4. Take ibuprofen every 8 hours for discomfort. If this does not relieve discomfort, you may take the as needed Percocet. Take narcotics as directed. Do not take more narcotics then directed and do not share your narcotics with any other person. Do not drink alcohol while on narcotics. 5. Take stool softeners (Colace) or a water based laxative (Miralax) while taking narcotics. You may hold for loose stools. 6. Report any fevers greater than 100.5F, increase abdominal discomfort, drainage that looks like pus, increased redness or pain at the surgical site, or any vomiting. 7. Report any pain in the calves, shortness of breath, or rapid heartbeat. 8. Follow-up in the office as directed. 9. If you were prescribed antibiotics, do not stop them without talking to your provider. Referrals: Chevy Combs DO [Primary Care Provider] - 10/12/18 9:10 am Chloe Garcia MD [Partnered Physician] - Prescriptions: Docusate Sodium [Colace] 100 mg PO BID PRN #30 capsule PRN Reason: Contstipation Ibuprofen 800 mg PO Q8H PRN #30 tablet PRN Reason: Postsurgical pain OxyCODONE/APAP 5/325 [Percocet 5/325 MG] 1 each PO Q6HR PRN 7 Days #28 tablet PRN Reason: Pain Ondansetron ODT [Zofran ODT] 4 mg SL Q4HR PRN #15 tab.rapdis PRN Reason: Postsurgical nausea
[2018-09-26] MEDS ORDERED: GLIPIZIDE 20 MG PO SCH (09:00)
[2018-09-26] MEDS: Famotidine 20 MG TABLET PO SCH ×2 (10:15→16:34)
[2018-09-26] MEDS: Gabapentin 300 MG CAPSULE PO SCH ×3 (10:15→20:04)
[2018-09-26] MEDS: Metoprolol XL (24 HR) Succ 50 MG TAB.ER.24H PO SCH (10:15)
[2018-09-26] MEDS: Insulin LISPRO 300 UNITS/3 ML VIAL SQ SCH ×4 (10:16→20:57)
[2018-09-26] MEDS: Alogliptin Benzoate [Alogliptin] 25 MG PO SCH (10:16)
[2018-09-26] MEDS: Empagliflozin [Jardiance] 25 MG PO SCH (10:16)
[2018-09-26] MEDS: *HR* HYDROcodone/Acet 5/325 mg TABLET PO PRN ×2 (10:17→16:35)
[2018-09-27 05:22] LABS: Eosinophils % 1.7 %; Immature Granulocytes % 1.5 % (0-4); Nucleated Red Blood Cells 0.6 /100 WBC (0)
[2018-09-27 05:23] LABS: Basophils % 0.4 %; Eosinophils # 0.1 K/mcL (0.0-0.6); Hematocrit 27.6 % (37.5-50.1); Hemoglobin 8.4 g/dL (12.9-16.9); Immature Platelets 4.6 % (1.1-6.1); Lymphocytes # 1.7 K/mcL (0.6-4.6); Lymphocytes % 20.4 %; Mean Corpuscular HGB Conc 30.4 g/dL (31.6-35.5); Mean Corpuscular Hemoglobin 25.3 pg (28.0-33.3); Mean Corpuscular Volume 83.1 fL (83.0-100.0); Mean Platelet Volume 11.1 fL (9.4-12.4); Monocytes # 0.5 K/mcL (0.0-1.3); Monocytes % 6.2 %; Neutrophils # 5.7 K/mcL (1.6-8.9); Platelet Count 135 K/mcL (140-400); Red Blood Count 3.32 M/mcL (4.19-5.50); Red Cell Distribution Width 20.8 % (11.5-14.5); Segmented Neutrophils % 69.8 %; White Blood Count 8.2 K/mcL (4.3-11.1)
[2018-09-27 05:59] LABS: Platelet Estimate Decreased (Normal)
[2018-09-27 07:21] VITALS: BP 135/71
[2018-09-27] MEDS: Gabapentin 300 MG CAPSULE PO SCH (08:20)
[2018-09-27] MEDS: Famotidine 20 MG TABLET PO SCH (08:20)
[2018-09-27] MEDS: Alogliptin Benzoate [Alogliptin] 25 MG PO SCH (08:20)
[2018-09-27] MEDS: Empagliflozin [Jardiance] 25 MG PO SCH (08:20)
[2018-09-27] MEDS: *HR* HYDROcodone/Acet 5/325 mg TABLET PO PRN (08:20)
[2018-09-27] MEDS: Metoprolol XL (24 HR) Succ 50 MG TAB.ER.24H PO SCH (08:21)
[2018-09-27] MEDS: Insulin LISPRO 300 UNITS/3 ML VIAL SQ SCH (08:22)
--- NOTE | 2018-09-27 09:03 | Discharge Summary ---
- NOTES TO OUTPATIENT PROVIDER Notes to Outpatient Provider: Pathology pending at time of d/c. He will need oncology appointment Orders not resulted at time of discharge: Pending orders 09/23/18 22:24 Surgical Pathology [PTH] Routine Estimated PT Needs at Discharge: None Estimated OT Needs at Discharge: None Estimated ST Needs at Discharge: None PT Estimated DME Needs at D/C: None Date of Encounter: 09/27/18 Time of Encounter: 09:11 - Discharge Diagnosis (1) Colon cancer Priority: Primary Status: Acute Qualifiers: Colon location: transverse Qualified Code(s): C18.4 - Malignant neoplasm of transverse colon (2) Anemia Priority: Secondary Status: Acute Qualifiers: Anemia type: other cause Other causes of anemia: chronic disease, neoplastic Qualified Code(s): D63.0 - Anemia in neoplastic disease (3) HTN, goal below 130/80 Priority: Secondary Status: Chronic (4) GERD with esophagitis Priority: Secondary Status: Chronic (5) Hypotension, unspecified Priority: Secondary Status: Resolved Qualifiers: Hypotension type: unspecified hypotension type Qualified Code(s): I95.9 - Hypotension, unspecified (6) Diabetes Priority: Secondary Status: Chronic Qualifiers: Diabetes mellitus type: type 2 Diabetes mellitus terminal press operator insulin use: without halfway use Diabetes mellitus complication status: without complication Qualified Code(s): E11.9 - Type 2 diabetes mellitus without complications General Surgery Exam Initial Vital Signs Temp Pulse Resp BP Pulse Ox 98.7 F 79 16 110/68 99 09/23/18 08:28 09/23/18 08:28 09/23/18 08:28 09/23/18 08:28 09/23/18 08:28 - General physical appearance well nourished, no distress, other (sitting upright inchair at bedside) - Eyes normal ocular movement - ENT normal mucosa, atraumatic, normocephalic - Respiratory normal expansion, normal respiratory effort - Cardiovascular Cardiovascular exam: Present: RRR - Abdomen Abdomen general surgery: Present: bowel sounds present, soft, tender (expected postoperative) - Incision Incision: Present: clean and dry, intact - Integumentary Integumentary general surgery: Present: warm and dry, no abnormal pigmentation, growths - Neurologic Present: CN 2-12 grossly intact, normal coordination, normal sensation - Musculoskeletal Present: normal gait, normal posture - Psychiatric Psychiatric general surgery: Present: appropriate, oriented to person, oriented to place, oriented to time, speech is normal, memory intact - Hospital Course Hospital course: Mr. Vallecillo is a 68 year old male presented on 09/23/2017 following an abnormal colonoscopy, for an elective robotic colectomy. He was taken to the operating room on 09/23/2017 where he underwent a robotic extended right hemicolectomy with primary anastomosis by Dr. Combs. His estimated blood loss was 15 mL. His postoperative course was complicated by hypotension and acute on chronic episode of anemia. His hemoglobin had decreased to 5.8 (with 8.4 at the time of surgery) without any obvious explanation. Prior to surgery he was started on benefit for, in the postoperative course he was transfused a total of 4 units packed red blood cells. His hemoglobin today is 8.4. His vital signs are stable, abdominal discomfort is controlled, and he has regained bowel function. We will begin discharge planning to home with a follow-up in the office in approximately [address] Combs. He is recommended to follow-up with oncology and 1 to 2 weeks. - Time Spent with Patient Total time spent providing and/or coordinating discharge services: - Discharge Medications Prescriptions: New Docusate Sodium [Colace] 100 mg PO BID PRN #30 capsule PRN Reason: Contstipation Ibuprofen 800 mg PO Q8H PRN #30 tablet PRN Reason: Postsurgical pain OxyCODONE/APAP 5/325 [Percocet 5/325 MG] 1 each PO Q6HR PRN 7 Days #28 tablet PRN Reason: Pain Ondansetron ODT [Zofran ODT] 4 mg SL Q4HR PRN #15 tab.rapdis PRN Reason: Postsurgical nausea Continued Metoprolol Succinate 50 mg PO DAILY Allopurinol [Zyloprim] 300 mg PO DAILY Alogliptin Benzoate [Alogliptin] 25 mg PO DAILY Aspirin Enteric Coated [Aspirin EC] 81 mg PO DAILY Atorvastatin [Lipitor] 80 mg PO HS Empagliflozin [Jardiance] 25 mg PO DAILY Gabapentin [Neurontin] 300 mg PO TID glipiZIDE [Glipizide] 20 mg PO BID Lisinopril-HCTZ 20-12.5 1 tab PO DAILY Lidocaine Patch [Lidoderm 5% patch] 1 patch TP Q24H PRN PRN Reason: Pain Metformin HCl [Glucophage] 1,000 mg PO BID Metformin HCl 500 mg PO 1200 Ondansetron HCl [Zofran] 4 mg PO QID PRN PRN Reason: Nausea Ranitidine HCl [Acid Mix House Tender] 150 mg PO BID Sildenafil Citrate 50 mg PO AD PRN PRN Reason: erection Terbinafine HCl [Terbinafine] 1 appl TP BID Home Medications: Allopurinol [Zyloprim] 300 mg PO DAILY 09/23/18 [History] Alogliptin Benzoate [Alogliptin] 25 mg PO DAILY 09/23/18 [History] Aspirin Enteric Coated [Aspirin EC] 81 mg PO DAILY 09/23/18 [History] Atorvastatin [Lipitor] 80 mg PO HS 09/23/18 [History] Empagliflozin [Jardiance] 25 mg PO DAILY 09/23/18 [History] Gabapentin [Neurontin] 300 mg PO TID 09/23/18 [History] Lidocaine Patch [Lidoderm 5% patch] 1 patch TP Q24H PRN 09/23/18 [History] Lisinopril-HCTZ 20-12.5 1 tab PO DAILY 09/23/18 [History] Metformin HCl 500 mg PO 1200 09/23/18 [History] Metformin HCl [Glucophage] 1,000 mg PO BID 09/23/18 [History] Metoprolol Succinate 50 mg PO DAILY 09/23/18 [History] Ondansetron HCl [Zofran] 4 mg PO QID PRN 09/23/18 [History] Ranitidine HCl [Acid Mix House Tender] 150 mg PO BID 09/23/18 [History] Sildenafil Citrate 50 mg PO AD PRN 09/23/18 [History] Terbinafine HCl [Terbinafine] 1 appl TP BID 09/23/18 [History] glipiZIDE [Glipizide] 20 mg PO BID 09/23/18 [History] Docusate Sodium [Colace] 100 mg PO BID PRN #30 capsule 09/24/18 [Rx] Ibuprofen 800 mg PO Q8H PRN #30 tablet 09/24/18 [Rx] Ondansetron ODT [Zofran ODT] 4 mg SL Q4HR PRN #15 tab.rapdis 09/24/18 [Rx] OxyCODONE/APAP 5/325 [Percocet 5/325 MG] 1 each PO Q6HR PRN 7 Days #28 tablet 09/24/18 [Rx] Allergies/Adverse Reactions: Allergy/AdvReac Type Severity Reaction Status Date / Time No Known Drug Allergies Allergy Unknown none Verified 09/23/18 12:34 Date of admission: 09/23/18 09:31 Primary care physician: Chevy Combs DO Discharging clinician: Radha Ba Anticipated date of discharge: 09/27/18 Labs on day of discharge: Labs from last 24 hours 09/27/18 09/25/18 09/23/18 04:20 20:13 09:24 WBC 8.2 RBC 3.32 L Hgb 8.4 L D Hct 27.6 L MCV 83.1 MCH 25.3 L MCHC 30.4 L RDW 20.8 H Plt Count 135 L MPV 11.1 Immature Gran % 1.5 Seg Neutrophils % 69.8 Lymphocytes % 20.4 Monocytes % 6.2 Eosinophils % 1.7 Basophils % 0.4 Neutrophils # 5.7 Lymphocytes # 1.7 Monocytes # 0.5 Eosinophils # 0.1 Basophils # 0.0 Nucleated RBCs/100 WBC 0.6 H Platelet Estimate Decreased L Immature Plt Fraction 4.6 POC Glucose 289 H Blood Type B NEGATIVE Antibody Screen NEGATIVE Crossmatch See Detail - Impressions ITS Impressions Chest X-Ray 09/23/18 09:07 IMPRESSION: No evidence of acute cardiopulmonary disease. D/ / Milton Mcdaniels MD / Milton Mcdaniels MD Interpreting Provider: Milton Mcdaniels MD Abdomen/Pelvis CT 09/26/18 04:27 IMPRESSION: 1. Postoperative changes with no evidence of hematoma. 2. Cholelithiasis. D/ / David Rodriguez MD / David Rodriguez MD Interpreting Provider: David Rodriguez MD - Patient Status Disposition: Home, Self-Care Condition: Fair Functional capacity at discharge: independent ambulation Overall status at discharge: patient is progressing back to baseline - Discharge Instructions Instructions: Colectomy (DC), Iron Rich Diet (DC), Anemia (GEN) Follow Up With: Chevy Combs DO [Primary Care Provider] - 10/12/18 9:10 am Chloe Garcia MD [Partnered Physician] - Oncology [facility] [Provider Group] (2 weeks) Additional Instructions: General Surgical Discharge Instructions 1. No pushing, pulling, or lifting greater than 15 lbs for 2-4 weeks (depending upon procedure). 2. You may shower beginning today, but no tub baths, soaking, or swimming for 2 weeks. 3. You may resume driving when you are off narcotics and are safe to react in a car. 4. Take ibuprofen every 8 hours for discomfort. If this does not relieve discomfort, you may take the as needed Percocet. Take narcotics as directed. Do not take more narcotics then directed and do not share your narcotics with an y other person. Do not drink alcohol while on narcotics. 5. Take stool softeners (Colace) or a water based laxative (Miralax) while taking narcotics. You may hold for loose stools. 6. Report any fevers greater than 100.5F, increase abdominal discomfort, drainage that looks like pus, increased redness or pain at the surgical site, or any vomiting. 7. Report any pain in the calves, shortness of breath, or rapid heartbeat. 8. Follow-up in the office as directed. 9. If you were prescribed antibiotics, do not stop them without talking to your provider. - Diet and Activity Activity: increase activity as tolerated Diet: advance to your usual diet
== END 2018-09-27 12:56 | disposition home or self-care (01) | DRG 330 ==
LOC: 3ANU 08:10 → SAMDAY 08:10 → 2NNU 09-24 10:20
PROVIDERS: ADMIT Surgery; ATTEND Surgery